=== PATIENT | female | born 2000 | race Caucasian/White ===

== ENCOUNTER 2022-05-09 09:46 | Emergency (ER) | payer MEDICAID ==
[~2022-05-09] VITALS: Ht 157.5 cm; Wt 64.0 kg
[2022-05-09 09:56] VITALS: BP 124/76
--- NOTE | 2022-05-09 10:44 | NUR ---
22 Y/O FEMALE BIB SELF C/O SUBJECTIVE FEVER, BODY ACHES, SUBJECTIVE FEVER, HEADACHE, SORE THROAT. RUNNY [id number], DENIES ANY MEDICATION FOR PAIN/FEVER TODAY NKA PMH: DENIES
[2022-05-09] MEDS ORDERED: IBUP-1842 PO (12:53)
[2022-05-09] MEDS ORDERED: BPM/480S48 PO (12:53)
[2022-05-09] MEDS ORDERED: NIRM1TAB5 PO (12:57)
--- NOTE | 2022-05-09 13:02 | NUR ---
Patient discharged with v/s stable. Written and verbal after care instructions ABOUT COVID 19 given and explained. Patient alert, oriented and verbalized understanding of instructions. Ambulatory with steady gait. All questions addressed prior to discharge. ID band removed. Patient advised to follow up with PMD. Rx of RONSSI PRESS-B LIQUID, MOTRIN, PAXLOVID 150-100 given. Patient educated on indication of medication including possible reaction and side effects. Opportunity to ask questions provided and answered.
== END 2022-05-09 13:01 | disposition home or self-care (01) ==
LOC: MED 09:46
DX: U07.1 COVID-19 (principal); Z79.899 Other long term (current) drug therapy
CPT/HCPCS: 99283